=== PATIENT | female | born 1980 | race Caucasian/White ===

== ENCOUNTER → 2018-08-10 | Outpatient (CLI) | payer OTHER ==
[~2018-08-10] MED LIST: HYDR-3240 PO; IBUP-1222 PO; OMEG300C PO; PREN1TAB27 PO; PREN1TAB60 PO
== END | disposition home or self-care (01) ==
LOC: CFH 08:30
PROVIDERS: ATTEND Family Medicine
DX: N64.4 Mastodynia (principal)
CPT/HCPCS: 76642; 77066; G0279